=== PATIENT | male | born 1930 | race Caucasian/White ===

== ENCOUNTER 2017-06-22 05:10 | Day surgery (SDC) | payer OTHER ==
[~2017-06-22] VITALS: Ht 177.8 cm; Wt 68.0 kg
[~2017-06-22 05:10] MED LIST: AMLODIPINE BESY10 MG PO; INDERAL80 MG PO; LATANOPROST2.5 ML BOTH EYES; TRAMADOL HCL50 MG PO
[2017-06-22 06:06] VITALS: BP 151/70
[2017-06-22 09:22] VITALS: BP 137/83
[2017-06-22 10:07] VITALS: BP 147/67
== END 2017-06-22 10:09 | disposition home or self-care (01) ==
LOC: SDC 05:10
PROC: 08QE3ZZ Repair Right Retina, Percutaneous Approach (ICD-10-PCS; principal; 2017-06-22)
PROC: 08B43ZZ Excision of Right Vitreous, Percutaneous Approach (ICD-10-PCS; principal; 2017-06-22)
DX: H43.11 Vitreous hemorrhage, right eye (principal); H43.811 Vitreous degeneration, right eye; H33.311 Horseshoe tear of retina without detachment, right eye; I10 Essential (primary) hypertension; Z86.73 Personal history of transient ischemic attack (TIA), and cerebral infarction without residual deficits; F17.200 Nicotine dependence, unspecified, uncomplicated
CPT/HCPCS: J0690; J0713; J7120